=== PATIENT | female | born 1995 | race Caucasian/White ===

== ENCOUNTER 2016-12-26 00:50 | Inpatient (IN) | payer MEDICAID ==
[2016-12-26] MEDS ORDERED: Aluminum Hydroxide/Magnesium Hydroxide/Simethicone Susp 30 ML Cup PO ONE (04:02)
[2016-12-26] MEDS ORDERED: Aluminum Hydroxide/Magnesium Hydroxide/Simethicone Susp 30 ML Cup PO PRN (04:03)
[2016-12-26] MEDS ORDERED: Misoprostol 25 MCG (1/4 of 100 MCG) Tab VAG PRN (06:12)
[2016-12-26] MEDS ORDERED: Terbutaline 1 MG/ML SDV SUBCUT PRN ×2 (06:12→06:16)
[2016-12-26] MEDS ORDERED: Oxytocin/0.9 % Sodium Chloride 30 UNIT/500 ML BAG IV SCH ×2 (06:15→06:30)
[2016-12-26] MEDS ORDERED: Misoprostol 25 MCG (1/4 of 100 MCG) Tab VAG SCH (06:15)
[2016-12-26] MEDS ORDERED: Lidocaine 1% 50 ML MDV INJECT PRN (06:16)
[2016-12-26] MEDS ORDERED: Sodium Chloride 0.9% 2.5 ML Syringe FLUSH PRN (06:16)
[2016-12-26] MEDS ORDERED: Methylergonovine 0.2 MG/1 ML Amp IM PRN (06:16)
[2016-12-26] MEDS ORDERED: Water For Irrigation,Sterile 1,000 ML Container IRR PRN (06:16)
[2016-12-26] MEDS ORDERED: Misoprostol 200 MCG Tab PO PRN (06:16)
[2016-12-26] MEDS ORDERED: Nalbuphine 10 MG/1 ML Vial IVPUSH PRN (06:16)
[2016-12-26] MEDS ORDERED: Butorphanol 1 MG/ML SDV IVPUSH PRN (06:16)
[2016-12-26] MEDS ORDERED: Carboprost Tromethamine 250 MCG/1 ML Amp IM PRN (06:16)
[2016-12-26] MEDS ORDERED: Sodium Chloride 0.9% 10 ML Syringe FLUSH PRN (06:16)
[2016-12-26] MEDS ORDERED: Misoprostol 25 MCG (1/4 of 100 MCG) Tab PO ONE (11:27)
--- NOTE | 2016-12-26 15:12 | PCM.PREANE ---
Preanesthetic Assessment - Procedure Proposed Procedure: LASHAE - Anesthesia/Transfusion/Family Hx Anesthesia History: No Prior Anesthesia Family History of Anesthesia Reaction: No - Review of Systems General: No Symptoms Pulmonary: No Symptoms Cardiovascular: No Symptoms Gastrointestinal: No Symptoms Neurological: No Symptoms Other: Reports: None - Physical Assessment Height: 1.75 m Weight: 106.141 kg ASA Class: 1 Mental Status: Alert & Oriented x3 Airway Class: Mallampati = 3 Dentition: Reports: Normal Dentition Thyro-Mental Finger Breadths: 3 Mouth Opening Finger Breadths: 4 ROM/Head Extension: Full Lungs: Clear to Auscultation, Normal Respiratory Effort Cardiovascular: Regular Rate, Regular Rhythm - Lab Values: Laboratory Last Values WBC 10.92 K/uL (4.0-11.0) 12/26/16 06:47 RBC 3.64 M/uL (4.30-5.90) L 12/26/16 06:47 Hgb 11.5 g/dL (12.0-16.0) L 12/26/16 06:47 Hct 33.4 % (36.0-46.0) L 12/26/16 06:47 MCV 91.8 fL (80.0-98.0) 12/26/16 06:47 MCH 31.6 pg (27.0-32.0) 12/26/16 06:47 MCHC 34.4 g/dL (31.0-37.0) 12/26/16 06:47 RDW Std Deviation 48.4 fl (28.0-62.0) 12/26/16 06:47 RDW Coeff of Carlos Alberto 15 % (11.0-15.0) 12/26/16 06:47 Plt Count 222 K/uL (150-400) 12/26/16 06:47 MPV 10.10 fL (7.40-12.00) 12/26/16 06:47 Nucleated RBC % 0.0 /100WBC 12/26/16 06:47 Nucleated RBCs # 0 K/uL 12/26/16 06:47 Blood Type A NEGATIVE 12/26/16 06:47 Antibody Screen NEGATIVE 12/26/16 06:47 - Allergies Allergies/Adverse Reactions: Allergies Allergy/AdvReac Type Severity Reaction Status Date / Time No Known Allergies Allergy Verified 09/27/16 22:48 - Blood Blood Available: Yes Product(s) Available: PRBC - Anesthesia Plan Pre-Op Medication Ordered: None - Acknowledgements Anesthesia Type Planned: Epidural Pt an Appropriate Candidate for the Planned Anesthesia: Yes Alternatives and Risks of Anesthesia Discussed w Pt/Guardian: Yes Pt/Guardian Understands and Agrees with Anesthesia Plan: Yes PreAnesthesia Questionnaire - Past Health History Medical/Surgical History: Denies Medical/Surgical History HEENT History: Reports: None Cardiovascular History: Reports: None Respiratory History: Reports: None Gastrointestinal History: Reports: None Genitourinary History: Reports: None SHOE CASER History: Reports: : 1 Para: 0 Musculoskeletal History: Reports: None Neurological History: Reports: None Psychiatric History: Reports: None Endocrine/Metabolic History: Reports: None - Infectious Disease History Infectious Disease History: Reports: None - Past Surgical History Respiratory Surgical History: Reports: None - SUBSTANCE USE Smoking Status *Q: Current Every Day Smoker Tobacco Use Within Last Twelve Months: Cigarettes Second Hand Smoke Exposure: Yes Recreational Drug Use History: No - CURRENT (IN HOUSE) MEDS Current Meds: Current Medications Al Hydroxide/Mg Hydroxide (Mag-Al Plus) 30 ml PO Q4H PRN PRN Reason: Heart burn Butorphanol Tartrate (Stadol) 1 mg IVPUSH ASDIRECTED PRN PRN Reason: Pain Carboprost Tromethamine (Hemabate Ds) 250 mcg IM ASDIRECTED PRN PRN Reason: Post Hemorrhage Oxytocin/Sodium Chloride (Oxytocin 30 Unit/500 Ml-Ns) 30 unit in 500 mls @ 2 mls/hr IV TITRATE SANDY; 2 MUNITS/MIN PRN Reason: Protocol Lactated Ringer's (Ringers, Lactated) 1,000 mls @ 150 mls/hr IV ASDIRECTED SANDY Oxytocin/Sodium Chloride (Oxytocin 30 Unit/500 Ml-Ns) 30 unit in 500 mls @ 2 mls/hr IV TITRATE SANDY; 2 MUNITS/MIN PRN Reason: Protocol Lidocaine HCl (Xylocaine 1%) 50 ml INJECT .ONCE PRN PRN Reason: Laceration repair Methylergonovine Maleate (Methergine) 0.2 mg IM ASDIRECTED PRN PRN Reason: Post Hemorrhage Misoprostol (Cytotec) 25 mcg VAG Q4H PRN PRN Reason: Cervical Ripening Last Admin: 12/26/16 11:57 Dose: 25 mcg Misoprostol (Cytotec) 25 mcg VAG .ONCE SANDY Last Admin: 12/26/16 07:15 Dose: 25 mcg Misoprostol (Cytotec) 200 mcg PO .ONCE PRN PRN Reason: Post Hemorrhage Nalbuphine HCl (Nubain) 10 mg IVPUSH ASDIRECTED PRN PRN Reason: Pain (severe 7-10) Sodium Chloride (Saline Flush) 10 ml FLUSH ASDIRECTED PRN PRN Reason: Keep Vein Open Sodium Chloride (Saline Flush) 2.5 ml FLUSH ASDIRECTED PRN PRN Reason: Keep Vein Open Sterile Water (Sterile Water For Irrigation) 1,000 ml IRR ASDIRECTED PRN PRN Reason: delivery Terbutaline Sulfate (Brethine) 0.25 mg SUBCUT ASDIRECTED PRN PRN Reason: Tacysystole Terbutaline Sulfate (Brethine) 0.25 mg SUBCUT ASDIRECTED PRN PRN Reason: Tacysystole Discontinued Medications Al Hydroxide/Mg Hydroxide (Mag-Al Plus) 30 ml PO ONETIME ONE Stop: 12/26/16 04:03 Last Admin: 12/26/16 04:44 Dose: 30 ml Misoprostol (Cytotec) 25 mcg PO ONETIME ONE Stop: 12/26/16 11:28 Last Admin: 12/26/16 11:56 Dose: 25 mcg
[2016-12-26] MEDS: Lactated Ringers 1,000 ML IV SCH ×2 (15:44→23:00)
[2016-12-26] MEDS ORDERED: fentaNYL 100 MCG/2 ML SDV ONE (19:58)
[2016-12-26] MEDS ORDERED: Ropivacaine HCl/PF 100 ML ONE (19:58)
[2016-12-27] MEDS: Lactated Ringers 1,000 ML IV SCH ×2 (01:05→03:25)
[2016-12-27] MEDS ORDERED: Ondansetron 4 MG/2 ML SDV IVPUSH ONE (02:05)
[2016-12-27] MEDS ORDERED: Citric Acid/Sodium Citrate Solution 30 ML Cup PO ONE (03:32)
[2016-12-27] MEDS ORDERED: Ropivacaine HCl/PF 100 ML ONE (06:31)
--- NOTE | 2016-12-27 07:58 | PCM48HPAN ---
Post Anesthesia Note - EVALUATION WITHIN 48HRS OF ANESTHETIC Vital Signs in Normal Range: Yes Patient Participated in Evaluation: Yes Respiratory Function Stable: Yes Airway Patent: Yes Cardiovascular Function Stable: Yes Hydration Status Stable: Yes Pain Control Satisfactory: Yes Nausea and Vomiting Control Satisfactory: Yes Mental Status Recovered: Yes
[2016-12-27] MEDS ORDERED: Bisacodyl 10 MG Supp RECTAL PRN (08:32)
[2016-12-27] MEDS ORDERED: Ibuprofen 400 MG Tab PO PRN (08:32)
[2016-12-27] MEDS ORDERED: Acetaminophen 500 MG Tab PO PRN (08:32)
[2016-12-27] MEDS ORDERED: Lanolin 100% Cream 7 GM Tube TOP PRN (08:32)
[2016-12-27] MEDS ORDERED: Benzocaine/Menthol 20%-0.5% Spray 78 GM Cannister TOP PRN (08:32)
--- NOTE | 2016-12-27 08:41 | OR ---
SURGEON: Nancy Taylor MD DATE OF PROCEDURE: 12/27/2016 PREOPERATIVE DIAGNOSES: 1. Term at 40 weeks and 1 day. 2. Induction of labor for polyhydramnios. POSTOPERATIVE DIAGNOSES: 1. Term at 40 weeks and 1 day. 2. Induction of labor for polyhydramnios. 3. Delivered. PROCEDURES: 1. Spontaneous vaginal delivery. 2. Repair of first-degree laceration. ANESTHESIA: Epidural. ESTIMATED BLOOD LOSS: 150 mL. COMPLICATIONS: None. DISPOSITION: Mother and baby stable in Labor and Delivery room, [facility]. FINDINGS: Male , weight 3100 g, score 2, 7, and 9 at 1, 5, and 10 minutes respectively. Thick fresh meconium at delivery. Loose nuchal cord x1. Grossly normal placenta with 3-vessel cord. First-degree laceration at 5 o'clock position. BRIEF HISTORY: Shannon is a 21-year-old primigravida, who was admitted on the December 26, 2016, for induction secondary to idiopathic polyhydramnios. surveillance in the office remained reassuring. GBS negative. On admission, she was found to be 2 cm dilated, 60% to 70% effaced, -3. She received Cytotec for cervical ripening followed by the Cooks balloon for mechanical cervical ripening. With the Cooks balloon in place oxytocin infusion was also commenced and titrated as per protocol. She was requested and received epidural for pain management. When the Cooks balloon dislodged, she was found to be 5 cm dilated, 70% effaced, -3. Artificial rupture of membranes was performed with slightly meconium stained amniotic fluid. Her oxytocin which we could only titrate up to a maximum dose of 6 milliunits per minute had to be stopped more than half a dozen times due to non-reassuring heart tracing, category II with recurrent variable decelerations and late decelerations. These decelerations always resolved once the oxytocin was turned off. Other intrapartum resuscitative measures were also employed. She slowly made progress and at one point due to the intolerance to labor , I had discussed the possibility of proceeding with a section if she didn't significant cervical change especially since the oxytocin could not be titrated upwards. scalp electrode and IUPC were already placed for adequate monitoring. She then progressed quite rapidly, became fully dilated and commenced active pushing. The clinical account manager on-call, Dr. Anders was called to be present for delivery. She did push quite well, brought the baby's head down a +4 station after an hour and a half of pushing and was set up for delivery in modified dorsal lithotomy position. DESCRIPTION OF PROCEDURE: She had a spontaneous vaginal delivery of a live male in direct occipito anterior position, loose nuchal cord which was easily reduced, fresh thick meconium was noted at delivery, anterior and posterior shoulders and the rest of the baby were delivered without difficulty. The baby was covered in meconium, and floppy at delivery. The cord was quickly double clamped and cut and the was handed over to Dr. Anders. With delivery of the , oxytocin infusion was converted to titration for active management of third stage of labor. Cord blood and gas samples were obtained. Placenta was delivered by controlled cord traction appeared to be complete and intact. Examination of the perineum revealed a first-degree laceration at 5 o'clock position. It was repaired with 3-0 Vicryl suture and was hemostatic post repair. Uterine massage was performed. Uterus was found to be well contracted. Sponge, instrument, and needle counts were correct at the end of the delivery. The infant transitioned well and remained in the room with the mother. ADUMVIV / MODL /[id number] MTDD
[2016-12-27] MEDS: Witch Hazel Medicated Pads 40/Jar TOP PRN (08:58)
[2016-12-27] MEDS: Docusate Sodium 100 MG Cap PO PRN ×2 (08:59→21:07)
[2016-12-27] MEDS: Ibuprofen 800 MG Tab PO PRN ×2 (08:59→15:15)
[2016-12-27] MEDS: Acetaminophen 500 MG Tab PO PRN ×2 (13:00→21:06)
[2016-12-28] MEDS: Ibuprofen 800 MG Tab PO PRN ×3 (01:56→22:40)
[2016-12-28] MEDS: Acetaminophen 500 MG Tab PO PRN ×3 (04:54→19:11)
--- NOTE | 2016-12-28 08:13 | PCM.PNPP ---
<Deepika Fraser - Last Filed: 12/28/16 08:14> - General Info Date of Service: 12/28/16 Functional Status: Reports: Pain Controlled, Tolerating Diet, Ambulating, Urinating - Review of Systems General: Denies: Fever, Weakness, Fatigue Pulmonary: Denies: Shortness of Breath, Pleuritic Chest Pain, Cough Cardiovascular: Denies: Chest Pain, Palpitations, Dyspnea on Exertion Gastrointestinal: Denies: Abdominal Pain, Constipation Genitourinary: Denies: Dysuria, Frequency, Burning, Pain Psychiatric: Reports: No Symptoms - General Info Date of Service: 12/28/16 - Patient Data Vital Signs - Most Recent: Last Vital Signs Temp 36.6 C 12/28/16 04:18 Pulse 65 12/28/16 04:18 Resp 16 12/28/16 04:18 BP 112/52 L 12/28/16 04:18 Pulse Ox 96 12/28/16 04:18 Weight - Most Recent: 234 lb Lab Results - Last 24 Hours: Laboratory Results - last 24 hr 12/28/16 Range/Units 05:14 Hgb 10.8 L (12.0-16.0) g/dL Hct 32.1 L (36.0-46.0) % Med Orders - Current: Current Medications Acetaminophen (Tylenol Extra Strength) 500 mg PO Q4H PRN PRN Reason: Pain Last Admin: 12/27/16 08:59 Dose: 500 mg Acetaminophen (Tylenol Extra Strength) 1,000 mg PO Q4H PRN PRN Reason: Pain Last Admin: 12/28/16 04:54 Dose: 1,000 mg Al Hydroxide/Mg Hydroxide (Mag-Al Plus) 30 ml PO Q4H PRN PRN Reason: Heart burn Benzocaine/Menthol (Dermoplast Pain Relief 20%-0.5% Ord) 78 gm TOP ASDIRECTED PRN PRN Reason: Perineal Comfort Measure Last Admin: 12/27/16 08:58 Dose: 78 gm Bisacodyl (Dulcolax) 10 mg RECTAL .ONCE PRN PRN Reason: Constipation Docusate Sodium (Colace) 100 mg PO BID PRN PRN Reason: Constipation Last Admin: 12/27/16 21:07 Dose: 100 mg Emollient Ointment (Lansinoh Hpa) 0 gm TOP ASDIRECTED PRN PRN Reason: Sore Nipples Oxytocin/Sodium Chloride (Oxytocin 30 Unit/500 Ml-Ns) 30 unit in 500 mls @ 2 mls/hr IV TITRATE SANDY; 2 MUNITS/MIN PRN Reason: Protocol Oxytocin/Sodium Chloride (Oxytocin 30 Unit/500 Ml-Ns) 30 unit in 500 mls @ 2 mls/hr IV TITRATE SANDY; 2 MUNITS/MIN PRN Reason: Protocol Last Titration: 12/27/16 04:10 Dose: 6 munits/min, 6 mls/hr Ibuprofen (Motrin) 400 mg PO Q4H PRN PRN Reason: Pain Ibuprofen (Motrin) 800 mg PO Q6H PRN PRN Reason: Pain Last Admin: 12/28/16 01:56 Dose: 800 mg Misoprostol (Cytotec) 25 mcg VAG Q4H PRN PRN Reason: Cervical Ripening Last Admin: 12/26/16 11:57 Dose: 25 mcg Misoprostol (Cytotec) 25 mcg VAG .ONCE SANDY Last Admin: 12/26/16 07:15 Dose: 25 mcg Sodium Chloride (Saline Flush) 10 ml FLUSH ASDIRECTED PRN PRN Reason: Keep Vein Open Sodium Chloride (Saline Flush) 2.5 ml FLUSH ASDIRECTED PRN PRN Reason: Keep Vein Open Terbutaline Sulfate (Brethine) 0.25 mg SUBCUT ASDIRECTED PRN PRN Reason: Tacysystole Terbutaline Sulfate (Brethine) 0.25 mg SUBCUT ASDIRECTED PRN PRN Reason: Tacysystole Witch Kristen (Tucks) 1 pad TOP ASDIRECTED PRN PRN Reason: comfort care Last Admin: 12/27/16 08:58 Dose: 1 pad Discontinued Medications Al Hydroxide/Mg Hydroxide (Mag-Al Plus) 30 ml PO ONETIME ONE Stop: 12/26/16 04:03 Last Admin: 12/26/16 04:44 Dose: 30 ml Butorphanol Tartrate (Stadol) 1 mg IVPUSH ASDIRECTED PRN PRN Reason: Pain Last Admin: 12/26/16 15:27 Dose: 1 mg Carboprost Tromethamine (Hemabate Ds) 250 mcg IM ASDIRECTED PRN PRN Reason: Post Hemorrhage Citric Acid/Sodium Citrate (Bicitra Solution) 30 ml PO ONETIME ONE Stop: 12/27/16 03:33 Last Admin: 12/27/16 03:42 Dose: 30 ml Fentanyl (Sublimaze) Confirm Administered Dose 100 mcg .ROUTE .STK-MED ONE Stop: 12/26/16 19:59 Lactated Ringer's (Ringers, Lactated) 1,000 mls @ 150 mls/hr IV ASDIRECTED SANDY Last Admin: 12/27/16 03:25 Dose: 150 mls/hr Ropivacaine (Naropin 0.2%) Confirm Administered Dose 100 mls @ as directed .ROUTE .STK-MED ONE Stop: 12/26/16 19:59 Ropivacaine (Naropin 0.2%) Confirm Administered Dose 100 mls @ as directed .ROUTE .STK-MED ONE Stop: 12/27/16 06:32 Lidocaine HCl (Xylocaine 1%) 50 ml INJECT .ONCE PRN PRN Reason: Laceration repair Methylergonovine Maleate (Methergine) 0.2 mg IM ASDIRECTED PRN PRN Reason: Post Hemorrhage Misoprostol (Cytotec) 200 mcg PO .ONCE PRN PRN Reason: Post Hemorrhage Misoprostol (Cytotec) 25 mcg PO ONETIME ONE Stop: 12/26/16 11:28 Last Admin: 12/26/16 11:56 Dose: 25 mcg Nalbuphine HCl (Nubain) 10 mg IVPUSH ASDIRECTED PRN PRN Reason: Pain (severe 7-10) Ondansetron HCl (Zofran) 4 mg IVPUSH ONETIME ONE Stop: 12/27/16 02:06 Last Admin: 12/27/16 03:21 Dose: 4 mg Sterile Water (Sterile Water For Irrigation) 1,000 ml IRR ASDIRECTED PRN PRN Reason: delivery - Infant Interaction Disposition, : [place] in Room with Family Infant Interaction: Holding Infant Infant Feeding: Bottle Fed Infant Support Person: Significant Other - Recovery Exam Fundal Tone: Firm Fundal Level: 1 Fingerbreadths Below Umbilicus Fundal Placement: Midline Lochia Amount: Scant Lochia Color: Rubra/Red Perineum Description: Intact, Minimal Bruising/Swelling Episiotomy/Laceration: Approximated Bladder Status: Voiding Urinary Elimination: Voided - Exam General: Alert, Oriented Lungs: Clear to Auscultation, Normal Respiratory Effort Cardiovascular: Regular Rate, Regular Rhythm GI/Abdominal Exam: Normal Bowel Sounds, Soft, Non-Tender, No Distention Extremities: Pedal Edema (trace) Psy/Mental Status: Alert, Normal Affect, Normal Mood - Problem List & Annotations (1) Vaginal delivery SNOMED Code(s): 099166443 Code(s): O80 - ENCOUNTER FOR FULL-TERM UNCOMPLICATED DELIVERY Status: Acute Current Visit: Yes - Problem List Review Problem List Initiated/Reviewed/Updated: Yes - Assessment Assessment:: PPD #1 from . Minimal pain and lochia. Plan on discharge home tomorrow. - Plan Plan:: Continue routine post- cares. being monitored for episodes of hypoglycemia. Anticipate discharge home tomorrow. <Nancy Taylor - Last Filed: 12/28/16 10:43> - Patient Data Vital Signs - Most Recent: Last Vital Signs Temp 36.4 C 12/28/16 08:00 Pulse 65 12/28/16 08:00 Resp 18 12/28/16 08:00 BP 114/80 12/28/16 08:00 Pulse Ox 94 L 12/28/16 08:00 Lab Results - Last 24 Hours: Laboratory Results - last 24 hr 12/28/16 Range/Units 05:14 Hgb 10.8 L (12.0-16.0) g/dL Hct 32.1 L (36.0-46.0) % Med Orders - Current: Current Medications Acetaminophen (Tylenol Extra Strength) 500 mg PO Q4H PRN PRN Reason: Pain Last Admin: 12/27/16 08:59 Dose: 500 mg Acetaminophen (Tylenol Extra Strength) 1,000 mg PO Q4H PRN PRN Reason: Pain Last Admin: 12/28/16 04:54 Dose: 1,000 mg Al Hydroxide/Mg Hydroxide (Mag-Al Plus) 30 ml PO Q4H PRN PRN Reason: Heart burn Benzocaine/Menthol (Dermoplast Pain Relief 20%-0.5% Ord) 78 gm TOP ASDIRECTED PRN PRN Reason: Perineal Comfort Measure Last Admin: 12/27/16 08:58 Dose: 78 gm Bisacodyl (Dulcolax) 10 mg RECTAL .ONCE PRN PRN Reason: Constipation Docusate Sodium (Colace) 100 mg PO BID PRN PRN Reason: Constipation Last Admin: 12/27/16 21:07 Dose: 100 mg Emollient Ointment (Lansinoh Hpa) 0 gm TOP ASDIRECTED PRN PRN Reason: Sore Nipples Oxytocin/Sodium Chloride (Oxytocin 30 Unit/500 Ml-Ns) 30 unit in 500 mls @ 2 mls/hr IV TITRATE SANDY; 2 MUNITS/MIN PRN Reason: Protocol Oxytocin/Sodium Chloride (Oxytocin 30 Unit/500 Ml-Ns) 30 unit in 500 mls @ 2 mls/hr IV TITRATE SANDY; 2 MUNITS/MIN PRN Reason: Protocol Last Titration: 12/27/16 04:10 Dose: 6 munits/min, 6 mls/hr Ibuprofen (Motrin) 400 mg PO Q4H PRN PRN Reason: Pain Ibuprofen (Motrin) 800 mg PO Q6H PRN PRN Reason: Pain Last Admin: 12/28/16 09:49 Dose: 800 mg Misoprostol (Cytotec) 25 mcg VAG Q4H PRN PRN Reason: Cervical Ripening Last Admin: 12/26/16 11:57 Dose: 25 mcg Misoprostol (Cytotec) 25 mcg VAG .ONCE SANDY Last Admin: 12/26/16 07:15 Dose: 25 mcg Sodium Chloride (Saline Flush) 10 ml FLUSH ASDIRECTED PRN PRN Reason: Keep Vein Open Sodium Chloride (Saline Flush) 2.5 ml FLUSH ASDIRECTED PRN PRN Reason: Keep Vein Open Terbutaline Sulfate (Brethine) 0.25 mg SUBCUT ASDIRECTED PRN PRN Reason: Tacysystole Terbutaline Sulfate (Brethine) 0.25 mg SUBCUT ASDIRECTED PRN PRN Reason: Tacysystole Witch Kristen (Tucks) 1 pad TOP ASDIRECTED PRN PRN Reason: comfort care Last Admin: 12/27/16 08:58 Dose: 1 pad Discontinued Medications Al Hydroxide/Mg Hydroxide (Mag-Al Plus) 30 ml PO ONETIME ONE Stop: 12/26/16 04:03 Last Admin: 12/26/16 04:44 Dose: 30 ml Butorphanol Tartrate (Stadol) 1 mg IVPUSH ASDIRECTED PRN PRN Reason: Pain Last Admin: 12/26/16 15:27 Dose: 1 mg Carboprost Tromethamine (Hemabate Ds) 250 mcg IM ASDIRECTED PRN PRN Reason: Post Hemorrhage Citric Acid/Sodium Citrate (Bicitra Solution) 30 ml PO ONETIME ONE Stop: 12/27/16 03:33 Last Admin: 12/27/16 03:42 Dose: 30 ml Fentanyl (Sublimaze) Confirm Administered Dose 100 mcg .ROUTE .STK-MED ONE Stop: 12/26/16 19:59 Lactated Ringer's (Ringers, Lactated) 1,000 mls @ 150 mls/hr IV ASDIRECTED SANDY Last Admin: 12/27/16 03:25 Dose: 150 mls/hr Ropivacaine (Naropin 0.2%) Confirm Administered Dose 100 mls @ as directed .ROUTE .STK-MED ONE Stop: 12/26/16 19:59 Ropivacaine (Naropin 0.2%) Confirm Administered Dose 100 mls @ as directed .ROUTE .STK-MED ONE Stop: 12/27/16 06:32 Lidocaine HCl (Xylocaine 1%) 50 ml INJECT .ONCE PRN PRN Reason: Laceration repair Methylergonovine Maleate (Methergine) 0.2 mg IM ASDIRECTED PRN PRN Reason: Post Hemorrhage Misoprostol (Cytotec) 200 mcg PO .ONCE PRN PRN Reason: Post Hemorrhage Misoprostol (Cytotec) 25 mcg PO ONETIME ONE Stop: 12/26/16 11:28 Last Admin: 12/26/16 11:56 Dose: 25 mcg Nalbuphine HCl (Nubain) 10 mg IVPUSH ASDIRECTED PRN PRN Reason: Pain (severe 7-10) Ondansetron HCl (Zofran) 4 mg IVPUSH ONETIME ONE Stop: 12/27/16 02:06 Last Admin: 12/27/16 03:21 Dose: 4 mg Sterile Water (Sterile Water For Irrigation) 1,000 ml IRR ASDIRECTED PRN PRN Reason: delivery - My Orders Last 24 Hours: My Active Orders 12/27/16 Dinner Regular Diet [DIET] - Plan Plan:: Patient reviewed independently and I agree with above assessment and paln. Dr Hernández- Physician home restoration service supervisor over the weekend will discharge patient home tomorrow
[2016-12-28] MEDS: Witch Hazel Medicated Pads 40/Jar TOP PRN (21:10)
[2016-12-28] MEDS: Docusate Sodium 100 MG Cap PO PRN (21:10)
[2016-12-28] MEDS ORDERED: Citric Acid/Sodium Citrate Solution 30 ML Cup PO ONE (21:34)
[2016-12-29] MEDS: Acetaminophen 500 MG Tab PO PRN ×2 (05:43→11:25)
--- NOTE | 2016-12-29 06:20 | PCM.PNPP ---
- General Info Date of Service: 12/29/16 Functional Status: Reports: Pain Controlled, Tolerating Diet, Ambulating, Urinating - Review of Systems General: Reports: No Symptoms HEENT: Reports: No Symptoms Pulmonary: Reports: No Symptoms Cardiovascular: Reports: No Symptoms Gastrointestinal: Reports: No Symptoms Genitourinary: Reports: No Symptoms Musculoskeletal: Reports: No Symptoms Skin: Reports: No Symptoms Neurological: Reports: No Symptoms Psychiatric: Reports: No Symptoms - Patient Data Vital Signs - Most Recent: Last Vital Signs Temp 37.1 C 12/28/16 16:00 Pulse 68 12/28/16 16:00 Resp 17 12/28/16 16:00 BP 115/63 12/28/16 16:00 Pulse Ox 96 12/28/16 16:00 Weight - Most Recent: 106.141 kg Med Orders - Current: Current Medications Acetaminophen (Tylenol Extra Strength) 500 mg PO Q4H PRN PRN Reason: Pain Last Admin: 12/27/16 08:59 Dose: 500 mg Acetaminophen (Tylenol Extra Strength) 1,000 mg PO Q4H PRN PRN Reason: Pain Last Admin: 12/29/16 05:43 Dose: 1,000 mg Al Hydroxide/Mg Hydroxide (Mag-Al Plus) 30 ml PO Q4H PRN PRN Reason: Heart burn Benzocaine/Menthol (Dermoplast Pain Relief 20%-0.5% [place]) 78 gm TOP ASDIRECTED PRN PRN Reason: Perineal Comfort Measure Last Admin: 12/27/16 08:58 Dose: 78 gm Bisacodyl (Dulcolax) 10 mg RECTAL .ONCE PRN PRN Reason: Constipation Docusate Sodium (Colace) 100 mg PO BID PRN PRN Reason: Constipation Last Admin: 12/28/16 21:10 Dose: 100 mg Emollient Ointment (Lansinoh Hpa) 0 gm TOP ASDIRECTED PRN PRN Reason: Sore Nipples Oxytocin/Sodium Chloride (Oxytocin 30 Unit/500 Ml-Ns) 30 unit in 500 mls @ 2 mls/hr IV TITRATE SANDY; 2 MUNITS/MIN PRN Reason: Protocol Oxytocin/Sodium Chloride (Oxytocin 30 Unit/500 Ml-Ns) 30 unit in 500 mls @ 2 mls/hr IV TITRATE SANDY; 2 MUNITS/MIN PRN Reason: Protocol Last Titration: 12/27/16 04:10 Dose: 6 munits/min, 6 mls/hr Ibuprofen (Motrin) 400 mg PO Q4H PRN PRN Reason: Pain Ibuprofen (Motrin) 800 mg PO Q6H PRN PRN Reason: Pain Last Admin: 12/28/16 22:40 Dose: 800 mg Misoprostol (Cytotec) 25 mcg VAG Q4H PRN PRN Reason: Cervical Ripening Last Admin: 12/26/16 11:57 Dose: 25 mcg Misoprostol (Cytotec) 25 mcg VAG .ONCE SANDY Last Admin: 12/26/16 07:15 Dose: 25 mcg Sodium Chloride (Saline Flush) 10 ml FLUSH ASDIRECTED PRN PRN Reason: Keep Vein Open Sodium Chloride (Saline Flush) 2.5 ml FLUSH ASDIRECTED PRN PRN Reason: Keep Vein Open Terbutaline Sulfate (Brethine) 0.25 mg SUBCUT ASDIRECTED PRN PRN Reason: Tacysystole Terbutaline Sulfate (Brethine) 0.25 mg SUBCUT ASDIRECTED PRN PRN Reason: Tacysystole Witch Kristen (Tucks) 1 pad TOP ASDIRECTED PRN PRN Reason: comfort care Last Admin: 12/28/16 21:10 Dose: 1 pad Discontinued Medications Al Hydroxide/Mg Hydroxide (Mag-Al Plus) 30 ml PO ONETIME ONE Stop: 12/26/16 04:03 Last Admin: 12/26/16 04:44 Dose: 30 ml Butorphanol Tartrate (Stadol) 1 mg IVPUSH ASDIRECTED PRN PRN Reason: Pain Last Admin: 12/26/16 15:27 Dose: 1 mg Carboprost Tromethamine (Hemabate Ds) 250 mcg IM ASDIRECTED PRN PRN Reason: Post Hemorrhage Citric Acid/Sodium Citrate (Bicitra Solution) 30 ml PO ONETIME ONE Stop: 12/27/16 03:33 Last Admin: 12/27/16 03:42 Dose: 30 ml Citric Acid/Sodium Citrate (Bicitra Solution) 30 ml PO ONETIME ONE Stop: 12/28/16 21:35 Last Admin: 12/28/16 22:34 Dose: 30 ml Fentanyl (Sublimaze) Confirm Administered Dose 100 mcg .ROUTE .STK-MED ONE Stop: 12/26/16 19:59 Lactated Ringer's (Ringers, Lactated) 1,000 mls @ 150 mls/hr IV ASDIRECTED SANDY Last Admin: 12/27/16 03:25 Dose: 150 mls/hr Ropivacaine (Naropin 0.2%) Confirm Administered Dose 100 mls @ as directed .ROUTE .STK-MED ONE Stop: 12/26/16 19:59 Ropivacaine (Naropin 0.2%) Confirm Administered Dose 100 mls @ as directed .ROUTE .STK-MED ONE Stop: 12/27/16 06:32 Lidocaine HCl (Xylocaine 1%) 50 ml INJECT .ONCE PRN PRN Reason: Laceration repair Methylergonovine Maleate (Methergine) 0.2 mg IM ASDIRECTED PRN PRN Reason: Post Hemorrhage Misoprostol (Cytotec) 200 mcg PO .ONCE PRN PRN Reason: Post Hemorrhage Misoprostol (Cytotec) 25 mcg PO ONETIME ONE Stop: 12/26/16 11:28 Last Admin: 12/26/16 11:56 Dose: 25 mcg Nalbuphine HCl (Nubain) 10 mg IVPUSH ASDIRECTED PRN PRN Reason: Pain (severe 7-10) Ondansetron HCl (Zofran) 4 mg IVPUSH ONETIME ONE Stop: 12/27/16 02:06 Last Admin: 12/27/16 03:21 Dose: 4 mg Sterile Water (Sterile Water For Irrigation) 1,000 ml IRR ASDIRECTED PRN PRN Reason: delivery - Infant Interaction Disposition, : [facility] in Room with Family Infant Interaction: Holding Infant Infant Feeding: Bottle Fed Support Person: Significant Other - Recovery Exam Fundal Tone: Firm Fundal Level: 1 Fingerbreadths Below Umbilicus Fundal Placement: Midline Lochia Amount: Scant Lochia Color: Rubra/Red Perineum Description: Intact, Minimal Bruising/Swelling Episiotomy/Laceration: Approximated Bladder Status: Voiding Urinary Elimination: Voided - Exam Lungs: Normal Respiratory Effort GI/Abdominal Exam: Normal Bowel Sounds, Soft, Non-Tender, No Organomegaly, No Distention Extremities: Normal Inspection, Normal Range of Motion, Non-Tender, No Pedal Edema Skin: Warm, Dry, Intact Neurological: No New Focal Deficit - Problem List & Annotations (1) Vaginal delivery SNOMED Code(s): 490974643 Code(s): O80 - ENCOUNTER FOR FULL-TERM UNCOMPLICATED DELIVERY Status: Acute Current Visit: Yes - Problem List Review Problem List Initiated/Reviewed/Updated: Yes - Assessment Assessment:: PPD #2 from . Minimal pain and lochia. has discontinued . - Plan Plan:: Stable, minimal lochia, discussed pain medications at home, she has not used narcotic pain medications while in the hospital, so I do not recommend home rx for them. I explained risks of narcotics to her. Mood is good. She is concerned about sleep and asked for oxycodone for sleep, I explained that it should not be used to help her sleep, but I will send rx for Vistaril to take at bedtime if needed.
[2016-12-29] MEDS: Ibuprofen 800 MG Tab PO PRN (08:42)
[2016-12-29 09:33] VITALS: BP 109/58
== END 2016-12-29 11:40 | disposition home or self-care (01) | DRG 775 ==
LOC: MW.OBCHECK 00:50 → MW.OB 00:55 → MW.OBCHECK 01:25 → OBSVTOIN 12-27 06:39 → MW.OB 12-27 10:37
PROVIDERS: ADMIT Obstetrics & Gynecology; ATTEND Obstetrics & Gynecology
PROC: 10E0XZZ Delivery of Products of Conception, External Approach (ICD-10-PCS; principal; 2016-12-27)
PROC: 10907ZC Drainage of Amniotic Fluid, Therapeutic from Products of Conception, Via Natural or Artificial Opening (ICD-10-PCS; 2016-12-27)
PROC: 0HQ9XZZ Repair Perineum Skin, External Approach (ICD-10-PCS; 2016-12-27)
PROC: 00HU33Z Insertion of Infusion Device into Spinal Canal, Percutaneous Approach (ICD-10-PCS; 2016-12-27)
PROC: 3E0R3BZ Introduction of Anesthetic Agent into Spinal Canal, Percutaneous Approach (ICD-10-PCS; 2016-12-27)
DX: O40.3XX0 Polyhydramnios, third trimester, not applicable or unspecified (principal); Z3A.40 40 weeks gestation of pregnancy; Z37.0 Single live birth; O70.0 First degree perineal laceration during delivery; O77.0 Labor and delivery complicated by meconium in amniotic fluid; O69.81X0 Labor and delivery complicated by cord around neck, without compression, not applicable or unspecified; O99.334 Smoking (tobacco) complicating childbirth
CPT/HCPCS: 01967; 36415; 59025; 59409; 85014; 85018; 85027; 86850; 86900; 86901; 88307; A9270-GY; J0595; J2405; J2590; J7120